=== PATIENT | male | born 1965 | race Caucasian/White ===

== ENCOUNTER 2025-03-13 09:50 | Outpatient (CLI) | payer OTHER ==
[2025-03-13 10:38] LABS: ALT (SGPT) 23 U/L (Less than 45); AST (SGOT) 26 U/L (11-34); Albumin 4.4 g/dL (3.1-4.5); Alkaline Phosphatase 85 U/L (40-110); Anion Gap 15 mmol/L (10-20); BUN (Urea Nitrogen) 17 mg/dL (8.4-25.7); Bilirubin, Total 0.3 mg/dL (0.3-1.2); Calc. Creatinine Clearance 0 mL/min (70-130); Calcium 9.4 mg/dL (7.8-10.44); Carbon Dioxide 23 mmol/L (22-29); Cardiac Risk 4.3 (Less than 4.5); Chloride 105 mmol/L (98-107); Cholesterol 213 mg/dl (< 200 Desired); Globulin 2.9 g/dL (2.4-3.5); Glucose 88 mg/dL (70-105); HDL Cholesterol 50 mg/dL (>60 Neg Risk); LDL Cholesterol, Calculated 127 mg/dL; Potassium 4.1 mmol/L (3.5-5.1); Sodium 139 mmol/L (136-145); Triglycerides 180 mg/dL (Less than 150)
[2025-03-15 16:15] LABS: HSV 1 - DNA Negative (Negative); HSV 2 - DNA Negative (Negative)
== END 2025-03-13 09:51 | disposition home or self-care (01) ==
LOC: MADLAB 09:50
PROVIDERS: ATTEND Nurse Practitioner Family
DX: Z12.5 Encounter for screening for malignant neoplasm of prostate (principal); Z13.6 Encounter for screening for cardiovascular disorders; R53.83 Other fatigue; Z20.2 Contact with and (suspected) exposure to infections with a predominantly sexual mode of transmission
CPT/HCPCS: 36415; 80053; 80061; 87529; G0103